=== PATIENT | male | born 1990 | race Caucasian/White ===

== ENCOUNTER 2023-05-19 20:51 | Outpatient (CLI) | payer MEDICAID, SELFPAY | END 2023-05-19 20:52 | disposition home or self-care (01) | LOC: AMB 05-25 05:25 | PROVIDERS: Visit Provider Internal Medicine | DX: M54.9 Dorsalgia, unspecified (principal) | CPT/HCPCS: A0425; A0429 ==

== ENCOUNTER 2023-05-19 21:07 | Emergency (ER) | payer MEDICAID, SELFPAY ==
[2023-05-19 21:16] VITALS: BP 113/67; PULSE 70; RESP 20; TEMP 36.9; O2SAT 97; BMI 27.4
--- NOTE | 2023-05-19 21:19 | XR_ITS ---
Patient: MANPREET HPILLIP Facility:?[facility] Patient ID:?[id number] Site Patient ID:?[id number]. Site :?[id number] Study:?XRay-Spine Lumbar 3 view-05/19/2023 10:14:31 PM Ordering Physician:?Abran Espinoza Final Report: INDICATION: Back pain. COMPARISON: None. TECHNIQUE: Lumbar spine 2 views. FINDINGS: Normal alignment. No fractures. No vertebral body loss of height. No spondylolisthesis. No osseous abnormalities. Normal visualized SI joints and hip joints. Normal visualized bowel gas pattern. Dictated by Yassine Grimes MD @ 05/19/2023 10:28:21 PM Signed by:?Yassine Grimes MD @05/19/2023 10:28:21 PM (Electronic Signature)
--- NOTE | 2023-05-19 21:29 | ED_ITS ---
HPI - Back Pain/Injury General Chief Complaint: Flank Pain Stated Complaint: pain Time Seen by Provider: 05/19/23 21:19 History of Present Illness HPI Narrative: Patient is a a 32-year-old gentleman who is in a local recovery unit from substance abuse who comes in today with pain in the low back. The pain is in the low lumbar region to the right of the midline. He has no chest pain no shortness of breath orthopnea no PND no nausea no vomiting no dysuria. He has otherwise been feeling fine. He states he worked out this morning and then 2 hours later began having the mechanical pain in his back. No similar symptoms previously. Review of Systems Status of ROS: Reports: 10 or more systems reviewed and unremarkable except as noted in History and below Exam Narrative: Exam Narrative: EXAM GENERAL: Patient appears comfortable and well. EYES: No scleral icterus. LYMPH: No supraclavicular or cervical lymphadenopathy. SKIN: Visible skin seen during exam normal or with benign process only. EXT: No dependent lower extremity pedal edema. HEART: Regular rate and rhythm with no murmurs, rubs, or gallops. LUNGS: Clear to auscultation bilaterally with no crackles or wheezes. ABD: Soft, non tender, non distended. PSYCH: Good eye contact, speech is not pressured. Const: Vital Signs, click to edit/add: Vital Signs - 24 hr 05/19/23 21:16 Temperature 98.4 F Pulse Rate [Right Brachial] 70 Respiratory Rate 20 Blood Pressure [Ri ght Upper Arm] 113/67 Pulse Oximetry 97 Oxygen Delivery Me thod Room Air Course Course ED Course: Patient seen and examined. Vital Signs Vital signs: Initial Vital Signs Temperature 98.4 F 05/19/23 21:16 Temperature Source Temporal Artery Scan 05/19/23 21:16 Pulse Rate 70 05/19/23 21:16 Pulse Rhythm Regular 05/19/23 21:16 Pulse Strength 3+ Normal 05/19/23 21:16 Respiratory Rate 20 05/19/23 21:16 Blood Pressure 113/67 05/19/23 21:16 Blood Pressure Mean 82 05/19/23 21:16 Blood Pressure Position Supine 05/19/23 21:16 Pulse Oximetry 97 05/19/23 21:16 Oxygen Delivery Method Room Air 05/19/23 21:16 Vital Signs Temperature 98.4 F 05/19/23 21:16 Pulse Rate 70 05/19/23 21:16 Respiratory Rate 20 05/19/23 21:16 Blood Pressure 113/67 05/19/23 21:16 Pulse Oximetry 97 05/19/23 21:16 Oxygen Delivery Method Room Air 05/19/23 21:16 Temperature 98.4 F 05/19/23 21:16 Pulse Rate 70 05/19/23 21:16 Respiratory Rate 20 05/19/23 21:16 Blood Pressure 113/67 05/19/23 21:16 Pulse Oximetry 97 05/19/23 21:16 Oxygen Delivery Method Room Air 05/19/23 21:16 MDM - Back Pain/Injury MDM Narrative Medical decision making narrative: Patient presents with low back pain appears mechanical in nature. His exam is normal and is vital signs are normal. X-ray series upon my review of his lumbar spine is unremarkable. UA is negative with reducing the chance that this is due to a kidney stone. I did give him 30 mg of IM Toradol and discharged back to his facility. He rotate Tylenol Motrin rest and fluids and follow up with his primary physician as needed. Differential diagnosis includes but not limited to mechanical back pain lumbar compression fracture pinched nerve scoliosis spondylolisthesis diskitis kidney stone Lab Data Labs: Lab Results 05/19/23 Range/Units 21:40 Urine Color Yellow (Yellow) Urine Appearance Clear (Clear) Urine pH 6.5 (5.0-8.5) Ur Specific [place] 1.020 (1.000-1.030) Urine Protein Negative (Negative) Urine Glucose (UA) Negative (Negative) Urine Ketones Negative (Negative) Urine Blood Negative (Negative) Urine Nitrite Negative (Negative) Urine Bilirubin Negative (Negative) Urine Urobilinogen 0.2 (0.2-1.0) Ur Leukocyte Esterase Negative (Negative) Discharge Plan Discharge Clinical Impression: Low back pain Patient Disposition: Home, Self-Care Condition: Stable Instructions: Acute Low Back Pain (ED) Additional Instructions: Tylenol Motrin Rest Ice Activity Level: No Restrictions Discharge Diet: Regular Follow Up/Referrals: Provider,Not a Local [Primary Care Provider] - Stand Alone Forms: [employer] Info Instructions
[2023-05-19 21:47] LABS: Appearance Urine Clear (Clear); Bilirubin Urine Negative (Negative); Blood Urine Negative (Negative); Color Urine Yellow (Yellow); Glucose Urine Negative (Negative); Ketones Urine Negative (Negative); Leukocyte Esterase Urine Negative (Negative); Nitrite Urine Negative (Negative); Protein Urine Negative (Negative); Urobilinogen Urine 0.2 (0.2-1.0); pH Urine 6.5 (5.0-8.5)
[2023-05-19] MEDS: KETOROLAC 30 MG/ML inj IM (22:38)
== END 2023-05-19 23:26 | disposition home or self-care (01) ==
PROVIDERS: Emergency Provider Internal Medicine
DX: M54.50 Low back pain, unspecified (principal)
CPT/HCPCS: 72100; 81003; 96372; 99283; 99284; J1885

== ENCOUNTER 2023-06-26 10:53 | Outpatient (CLI) | payer MEDICAID, SELFPAY | END 2023-06-26 10:54 | disposition home or self-care (01) | LOC: NFLDUCREF 10:54 | PROVIDERS: PCP Registered Nurse; Visit Provider Registered Nurse | DX: M79.89 Other specified soft tissue disorders (principal) | CPT/HCPCS: 86140 ==

== ENCOUNTER 2023-07-20 14:12 | Emergency (ER) | payer MEDICAID, SELFPAY ==
[2023-07-20 14:48] VITALS: BP 96/61; PULSE 64; RESP 16; TEMP 36.6; O2SAT 94; BMI 29.9
--- NOTE | 2023-07-20 15:11 | ED.GENADULT ---
HPI - General Adult General Chief complaint: Extremity Pain/Injury, Upper Stated complaint: Infection in L forearm-[facility] ref after 3rd visit Time Seen by Provider: 07/20/23 14:52 History of Present Illness HPI narrative: Patient is a 32-year-old gentleman who has pain and swelling in the left wrist. He has no recent trauma. He has been seen at urgent care and treated with antibiotics and ibuprofen with limited effect. Patient's pain is limited to the wrist itself which is somewhat erythematous and slightly swollen. He has had similar flares in the past which have resolved spontaneously. This particular flares been present for 2 weeks. No other concerns noted. Related Data Home Medications ?Medication ?Instructions ?Recorded ?Confirmed buprenorphine 12 mg-naloxone 3 mg 2 film buccal Q24H 06/12/23 07/20/23 sublingual film (Suboxone) naproxen 250 mg tablet 250 mg PO BID PRN 06/12/23 07/20/23 risperidone 4 mg tablet (Risperdal) 4 mg PO QDAY 06/12/23 07/20/23 Tylenol 07/20/23 Previous Rx's ?Medication ?Instructions ?Recorded prednisone 20 mg tablet 20 mg PO BID #10 tabs 07/20/23 Allergies Allergy/AdvReac Type Severity Reaction Status Date / Time No Known Drug Allergies Allergy Verified 06/26/23 10:14 Review of Systems Status of ROS: Reports: 10 or more systems reviewed and unremarkable except as noted in History and below [facility] Social History Non-prescribed substance use: denies use Exam Narrative: Exam Narrative: EXAM GENERAL: Patient appears comfortable and well. EYES: No scleral icterus. ENT: Tympanic membranes and oropharynx normal. THYROID: no thyroid nodules or thyromegaly. LYMPH: No supraclavicular or cervical lymphadenopathy. SKIN: Visible skin seen during exam normal or with benign process only. EXT: Swelling noted in the local left wrist consistent with monoarthritis no other acute findings. HEART: Regular rate and rhythm with no murmurs, rubs, or gallops. LUNGS: Clear to auscultation bilaterally with no crackles or wheezes. ABD: Soft, non tender, non distended. PSYCH: Good eye contact, speech is not pressured. Const: Vital Signs, click to edit/add: Vital Signs - 24 hr 07/20/23 14:48 Temperature 97.9 F Pulse Rate [Pulse Oximeter] 64 Respiratory Rate 16 Blood Pressure [Ri ght Upper Arm] 96/61 Pulse Oximetry 94 Oxygen Delivery Me thod Room Air Course Course ED Course: Patient seen and examined. Vital Signs Vital signs: Initial Vital Signs Temperature 97.9 F 07/20/23 14:48 Temperature Source Temporal Artery Scan 07/20/23 14:48 Pulse Rate 64 07/20/23 14:48 Respiratory Rate 16 07/20/23 14:48 Blood Pressure 96/61 07/20/23 14:48 Blood Pressure Mean 72 07/20/23 14:48 Blood Pressure Position Sitting 07/20/23 14:48 Pulse Oximetry 94 07/20/23 14:48 Oxygen Delivery Method Room Air 07/20/23 14:48 Vital Signs Temperature 97.9 F 07/20/23 14:48 Pulse Rate 64 07/20/23 14:48 Respiratory Rate 16 07/20/23 14:48 Blood Pressure 96/61 07/20/23 14:48 Pulse Oximetry 94 07/20/23 14:48 Oxygen Delivery Method Room Air 07/20/23 14:48 Temperature 97.9 F 07/20/23 14:48 Pulse Rate 64 07/20/23 14:48 Respiratory Rate 16 07/20/23 14:48 Blood Pressure 96/61 07/20/23 14:48 Pulse Oximetry 94 07/20/23 14:48 Oxygen Delivery Method Room Air 07/20/23 14:48 Medical Decision Making MDM Narrative Medical decision making narrative: Patient is a 32-year-old gentleman with a swollen left wrist. He has failed antibiotics. Ice had similar episodes the past making wonder if he is having intermittent rheumatologic monoarthritis. I did treat him with Solu-Medrol IM a short course of prednisone and given my card to follow-up in the office if he is not better by next week at which point we proceed with a full workup. Differential diagnosis includes but not limited to septic joint trauma fracture sprain monoarthritis autoimmune disorder. Discharge Plan Discharge Clinical Impression: Pain in wrist Patient Disposition: Home, Self-Care Condition: Stable Additional Instructions: Ice Prednisone as directed Continue current medications Follow-up Dr. Espinoza next week if not better. Activity Level: No Restrictions Discharge Diet: Regular Prescriptions: New prednisone 20 mg tablet 20 mg PO BID Qty: 10 0RF No Action buprenorphine-naloxone [Suboxone] 12-3 mg film 2 film buccal Q24H Rx Instructions: place 1 strip/tab under (each) side of tongue risperidone [Risperdal] 4 mg tablet 4 mg PO QDAY naproxen 250 mg tablet 250 mg PO BID PRN Tylenol Follow Up/Referrals: Provider,Not a Local [Primary Care Provider] - Stand Alone Forms: [employer] Info Instructions
== END 2023-07-20 15:54 | disposition home or self-care (01) ==
LOC: ED 15:36
PROVIDERS: Emergency Provider Internal Medicine
DX: M25.532 Pain in left wrist (principal)
CPT/HCPCS: 99282; 99283